=== PATIENT | female | born 1950 | race Native Hawaiian/Other Pacific Islander ===

== ENCOUNTER → 2023-07-13 14:34 | Outpatient (BNVA) | payer MEDICARE, OTHER, SELFPAY | PROVIDERS: PCP Internal Medicine; Referring Provider Dermatology; Visit Provider Physician Assistant | DX: M25.561 Pain in right knee (principal); M25.562 Pain in left knee; M23.206 Derangement of unspecified meniscus due to old tear or injury, right knee; Z46.89 Encounter for fitting and adjustment of other specified devices; M17.10 Unilateral primary osteoarthritis, unspecified knee | CPT/HCPCS: 73560; 73565; 97760; 99203; L1812 ==

== ENCOUNTER 2023-07-13 15:56 | Outpatient (CLI) | payer MEDICARE, OTHER, SELFPAY | END 2023-07-13 15:57 | disposition home or self-care (01) | LOC: SPT 15:57 | PROVIDERS: PCP Internal Medicine; Visit Provider Student in an Organized Health Care Education/Training Program | DX: Z46.89 Encounter for fitting and adjustment of other specified devices (principal); M17.10 Unilateral primary osteoarthritis, unspecified knee | CPT/HCPCS: 97760; 99203; L1812 ==

== ENCOUNTER → 2023-08-19 10:00 | Outpatient (BNVA) | payer MEDICARE, OTHER, SELFPAY | PROVIDERS: PCP Internal Medicine; Visit Provider Physician Assistant | DX: M23.206 Derangement of unspecified meniscus due to old tear or injury, right knee (principal) | CPT/HCPCS: 99213 ==

== ENCOUNTER 2023-08-25 15:51 | Outpatient (CLI) | payer MEDICARE, OTHER, SELFPAY ==
--- NOTE | 2023-08-25 16:00 | MR_ITS ---
WS: [id number] MRI RIGHT KNEE HISTORY: knee pain COMPARISON: Radiographs 07/13/2023 Anterior cruciate ligament: Intact. Posterior cruciate ligament: Abnormal signal with marked thickening of the posterior cruciate ligamen t. There is a gap in the middle ligament consistent with a full-thickness tear. Medial collateral ligament: Intact. Posterior lateral corner structures: Intact. Medial menisci: Abnormal signal in the periphery of the posterior horn. Intrasubstance degeneration a nd suspected tear in the peripheral third of the meniscus. The anterior horn is normal. Lateral meniscus: Intact. Normal signal, size and shape. Extensor mechanism: Distal quadriceps tendon and patellar tendons are intact. Fluid and soft tissue: Moderate suprapatellar joint effusion. No Noonan's cyst. Osseous and articular structures: Patellofemoral compartment: No marrow edema or dislocation. Cartilage appears well-preserved. Medial compartment: Mild narrowing. Thinning and fissuring of the cartilage. Lateral compartment: Minimal narrowing with thinning and fissuring of the cartilage. IMPRESSION: 1. Abnormal PCL. Consistent with a complete tear in the mid body of the ligament. 2. Abnormal signal peripheral third posterior horn medial meniscus. There is intrasubstance degenerat ion and suspected tear. 3. Mild tricompartment joint space narrowing. No marrow edema. 4. Moderate suprapatellar joint effusion.
== END 2023-08-25 15:52 | disposition home or self-care (01) ==
LOC: RAD 15:51
PROVIDERS: PCP Internal Medicine; Visit Provider Physician Assistant
DX: M25.461 Effusion, right knee (principal); M23.201 Derangement of unspecified lateral meniscus due to old tear or injury, left knee
CPT/HCPCS: 73721